=== PATIENT | female | born 1960 | race Two or more races ===

== ENCOUNTER 2017-06-17 08:12 | Emergency (ER) | payer MEDICAID ==
[~2017-06-17] VITALS: Ht 167.6 cm; Wt 72.6 kg
[2017-06-17 08:40] VITALS: BP 138/72
[2017-06-17] MEDS ORDERED: KETOROLAC TROMETH 60MG/2ML VIAL IM ONE (08:45)
== END 2017-06-17 09:31 | disposition home or self-care (01) ==
LOC: ER 08:12
DX: S46.001A Unspecified injury of muscle(s) and tendon(s) of the rotator cuff of right shoulder, initial encounter (principal); W19.XXXA Unspecified fall, initial encounter; Y93.89 Activity, other specified; Y99.8 Other external cause status; Y92.89 Other specified places as the place of occurrence of the external cause
CPT/HCPCS: 73030; 93005; 96372; 99284; J1885